=== PATIENT | female | born 1995 | race Native Hawaiian/Other Pacific Islander ===

== ENCOUNTER 2017-08-28 12:53 | Emergency (ER) | payer OTHER ==
[~2017-08-28] VITALS: Ht 157.5 cm; Wt 60.3 kg
== END 2017-08-28 14:43 | disposition home or self-care (01) ==
LOC: ED 12:53
DX: O47.1 False labor at or after 37 completed weeks of gestation (principal)
CPT/HCPCS: 81000; 87491; 87591; 99282